=== PATIENT | female | born 1950 | race Caucasian/White ===

== ENCOUNTER 2017-08-13 16:19 | Emergency (ER) | payer OTHER ==
[~2017-08-13] VITALS: Ht 162.6 cm; Wt 114.0 kg
[2017-08-13] MEDS ORDERED: LIDODERM 5% P1 PATCH TD (18:39)
[2017-08-13] MEDS ORDERED: PREDNISONE20 MG PO (18:39)
[2017-08-13] MEDS ORDERED: VALIUM5 MG PO (18:39)
[2017-08-13 18:49] VITALS: BP 168/98
== END 2017-08-13 18:50 | disposition home or self-care (01) ==
LOC: EME 16:19
DX: M62.830 Muscle spasm of back (principal); E11.9 Type 2 diabetes mellitus without complications; E78.5 Hyperlipidemia, unspecified; I10 Essential (primary) hypertension; Z98.84 Bariatric surgery status
CPT/HCPCS: 72070; 99281; 99284; J7512